=== PATIENT | female | born 1945 ===

== ENCOUNTER 2021-10-07 11:04 | Inpatient (IN) | payer MEDICARE, BC ==
[2021-10-07] MEDS ORDERED: Acetaminophen 325 MG TAB PO PRN (11:30)
[2021-10-07] MEDS ORDERED: Ondansetron PF 4 MG/2 ML Vial IVP PRN (11:30)
[2021-10-07] MEDS ORDERED: Morphine 4 MG/ML VIAL SLOW IVP PRN ×2 (11:30→14:22)
[2021-10-07] MEDS ORDERED: traMADol HCl 50 MG TAB PO PRN ×2 (11:30→19:09)
[2021-10-07] MEDS ORDERED: hydrALAZINE 20 MG/ML VIAL SLOW IVP PRN (11:30)
[2021-10-07] MEDS ORDERED: Lidocaine 2% 20 ml MDV SC SCH (11:45)
[2021-10-07] MEDS ORDERED: Sodium Chloride 0.9% 1,000 ML IV SCH ×2 (11:45→17:15)
[2021-10-07 11:56] LABS: Hemoglobin 12.7 g/dL (12.0-16.0); Mean Corpuscular HGB CONC 31.2 g/dL (32.0-36.0); Mean Corpuscular Hemoglobin 35.7 pg (27.0-31.0); RBC Distribution Width 12.5 % (11.5-14.5); Red Blood Cell (RBC) Count 3.56 mill/uL (4.20-5.40); White Blood Cell (WBC) Count 31.8 thou/uL (4.8-10.8)
[2021-10-07 12:02] VITALS: BMI 19.1
[2021-10-07 12:12] LABS: Band 16 % (5-11); Lymphocytes 3 % (21-51); MDiff Complete? YES; Macrocytosis SLIGHT = 6-15 cells (100X) (0-5/hpf); Mean Platelet Volume 7.8 fL (7.4-10.4); Monocytes 14 % (0-10); Neutrophil 67 % (42-75); Platelet Count 227 thou/uL (130-400); Platelet Morphology Comment Appears Adequate
[2021-10-07 12:18] LABS: Anion Gap 12 mmol/L (10-20); BUN (Urea Nitrogen) 24 mg/dL (9.8-20.1); Calc. Creatinine Clearance 38 mL/min (70-130); Calcium 9.3 mg/dL (7.8-10.44); Carbon Dioxide 36 mmol/L (23-31); Chloride 96 mmol/L (98-107); Glucose 195 mg/dL (83-110); Magnesium 3.1 mg/dL (1.6-2.6); Phosphorus 4.1 mg/dL (2.3-4.7); Potassium 4.5 mmol/L (3.5-5.1); Sodium 139 mmol/L (136-145)
[2021-10-07] MEDS ORDERED: Lidocaine 1% (PF) 30 ML VIAL ONE (12:18)
[2021-10-07] MEDS ORDERED: Albuterol Sulfate 1.25 MG/3 ML NEB NEB SCH ×2 (13:45→19:00)
[2021-10-07] MEDS ORDERED: Albuterol Sulfate 1.25 MG/3 ML NEB NEB PRN (13:45)
[2021-10-07] MEDS ORDERED: Gabapentin 300 MG CAP PO SCH (15:00)
[2021-10-07] MEDS: methylPREDNISolone Sod Succ 40 MG VIAL IVP SCH (18:10)
[2021-10-07] MEDS ORDERED: Cyclobenzaprine 10 MG TAB PO PRN (19:12)
[2021-10-07] MEDS ORDERED: Morphine 2 MG/ML VIAL SLOW IVP PRN (19:14)
[2021-10-07] MEDS ORDERED: traMADol HCl 50 MG TAB PO SCH (19:15)
[2021-10-07] MEDS ORDERED: Acetaminophen 500 MG TAB PO SCH (19:15)
[2021-10-07] MEDS: Gabapentin 100 MG CAP PO SCH (21:13)
[2021-10-07] MEDS: Senokot S 8.6-50 MG TAB PO SCH (21:16)
[2021-10-07] MEDS: Famotidine/PF 20 mg/2ml Vial SLOW IVP SCH (21:19)
[2021-10-07 22:36] LABS: Bacteria/HPF None Seen HPF (None Seen); Bilirubin Negative (Negative); Blood, Urine Negative (Negative); Clarity Clear (Clear); Glucose, Urine (Dipstick) 500 mg/dL (Negative); Ketone, Urine Negative (Negative); Leukocyte 250 Leu/uL (Negative); Nitrite Negative (Negative); Protein, Urine (Dipstick) 10 mg/dL (Neg-Trace); Urobilinogen Normal mg/dL (Less than 2); WBC/HPF 0-3 HPF (0-3)
[2021-10-07 22:37] LABS: Specific Gravity, Urine 1.062 (1.002-1.036)
[2021-10-07 22:38] LABS: Urine Culture Reflex No No
[2021-10-08] MEDS: Acetaminophen 500 MG TAB PO SCH ×4 (00:07→16:50)
[2021-10-08] MEDS: traMADol HCl 50 MG TAB PO SCH ×4 (00:14→16:51)
[2021-10-08] MEDS: methylPREDNISolone Sod Succ 40 MG VIAL IVP SCH ×4 (00:16→16:48)
[2021-10-08 04:19] LABS: Hemoglobin 11.4 g/dL (12.0-16.0); Mean Corpuscular Hemoglobin 34.4 pg (27.0-31.0); Mean Platelet Volume 8.5 fL (7.4-10.4); Platelet Count 185 thou/uL (130-400); Red Blood Cell (RBC) Count 3.31 mill/uL (4.20-5.40); White Blood Cell (WBC) Count 25.5 thou/uL (4.8-10.8)
[2021-10-08 04:32] LABS: ALT (SGPT) 14 U/L (8-55); AST (SGOT) 25 U/L (5-34); Albumin 3.8 g/dL (3.4-4.8); Alkaline Phosphatase 42 U/L (40-110); Anion Gap 13 mmol/L (10-20); BUN (Urea Nitrogen) 23 mg/dL (9.8-20.1); Bilirubin, Total 0.4 mg/dL (0.2-1.2); Calc. Creatinine Clearance 43 mL/min (70-130); Calcium 8.7 mg/dL (7.8-10.44); Carbon Dioxide 28 mmol/L (23-31); Chloride 100 mmol/L (98-107); Globulin 2.2 g/dL (2.4-3.5); Glucose 159 mg/dL (83-110); Magnesium 2.5 mg/dL (1.6-2.6); Phosphorus 3.5 mg/dL (2.3-4.7); Potassium 5.3 mmol/L (3.5-5.1); Sodium 136 mmol/L (136-145)
[2021-10-08 04:41] LABS: #Lymphocytes 0.6 thou/uL (1.20-3.40); #Monocytes 1.4 thou/uL (0.11-0.59); #Neutrophils 23.5 thou/uL (1.40-6.50); %Eosinophils 0.1 % (0.0-10.0); %Lymphocytes 2.2 % (21.0-51.0); %Monocytes 5.6 % (0.0-10.0); MDiff Complete? YES; Macrocytosis SLIGHT = 6-15 cells (100X) (0-5/hpf)
[2021-10-08] MEDS: predniSONE 5 MG TAB PO SCH (08:15)
[2021-10-08] MEDS: Gabapentin 100 MG CAP PO SCH ×3 (08:15→20:35)
[2021-10-08] MEDS: Citalopram 20 MG TAB PO SCH (08:15)
[2021-10-08] MEDS: Senokot 8.6 MG TAB PO SCH (08:16)
[2021-10-08] MEDS: Senokot S 8.6-50 MG TAB PO SCH ×2 (08:16→20:35)
[2021-10-08] MEDS: Polyethylene Glycol 3350 17 GM Packet PO SCH (08:16)
[2021-10-08] MEDS ORDERED: Non-Formulary Item 1 EACH (Tiotropium Bromide [Spiriva] 18 MCG Cap.W.Dev) INH SCH (09:00)
[2021-10-08] MEDS ORDERED: Sodium Chloride 0.9% 1,000 ML IV SCH (10:47)
[2021-10-08 11:39] VITALS: BP 144/67
[2021-10-08] MEDS ORDERED: hydrALAZINE 20 MG/ML VIAL SLOW IVP PRN (16:48)
[2021-10-08] MEDS ORDERED: Sodium Chloride 0.9% 500 ML IV SCH (18:30)
[2021-10-08] MEDS: Sodium Chloride 0.9% 1,000 ML IV SCH ×2 (18:36→20:36)
[2021-10-08 19:18] LABS: Anion Gap 13 mmol/L (10-20); BUN (Urea Nitrogen) 25 mg/dL (9.8-20.1); Calc. Creatinine Clearance 46 mL/min (70-130); Calcium 8.4 mg/dL (7.8-10.44); Carbon Dioxide 31 mmol/L (23-31); Chloride 100 mmol/L (98-107); Glucose 178 mg/dL (83-110); Potassium 5.2 mmol/L (3.5-5.1); Sodium 139 mmol/L (136-145)
[2021-10-08] MEDS: Famotidine/PF 20 mg/2ml Vial SLOW IVP SCH (20:35)
[2021-10-09] MEDS: Acetaminophen 500 MG TAB PO SCH ×5 (01:14→21:00)
[2021-10-09] MEDS: methylPREDNISolone Sod Succ 40 MG VIAL IVP SCH ×2 (01:15→06:10)
[2021-10-09] MEDS: traMADol HCl 50 MG TAB PO SCH ×5 (01:15→21:00)
[2021-10-09 03:42] LABS: #Lymphocytes 0.6 thou/uL (1.20-3.40); #Neutrophils 21.3 thou/uL (1.40-6.50); %Eosinophils 0.1 % (0.0-10.0); %Lymphocytes 2.3 % (21.0-51.0); %Monocytes 8.3 % (0.0-10.0); %Neutrophils 89.3 % (42.0-75.0); Mean Corpuscular HGB CONC 30.7 g/dL (32.0-36.0); Mean Corpuscular Hemoglobin 34.9 pg (27.0-31.0); Mean Platelet Volume 8.8 fL (7.4-10.4); Platelet Count 160 thou/uL (130-400); RBC Distribution Width 11.9 % (11.5-14.5); Red Blood Cell (RBC) Count 3.16 mill/uL (4.20-5.40); White Blood Cell (WBC) Count 23.9 thou/uL (4.8-10.8)
[2021-10-09 03:58] LABS: Anion Gap 12 mmol/L (10-20); BUN (Urea Nitrogen) 29 mg/dL (9.8-20.1); Calc. Creatinine Clearance 47 mL/min (70-130); Calcium 8.8 mg/dL (7.8-10.44); Carbon Dioxide 33 mmol/L (23-31); Chloride 101 mmol/L (98-107); Glucose 176 mg/dL (83-110); Magnesium 2.4 mg/dL (1.6-2.6); Phosphorus 2.4 mg/dL (2.3-4.7); Sodium 141 mmol/L (136-145)
[2021-10-09] MEDS: Polyethylene Glycol 3350 17 GM Packet PO SCH ×2 (08:40→10:17)
[2021-10-09] MEDS: Senokot S 8.6-50 MG TAB PO SCH ×3 (08:40→21:00)
[2021-10-09] MEDS: Senokot 8.6 MG TAB PO SCH ×2 (08:40→10:17)
[2021-10-09] MEDS: Lisinopril 5 MG TAB PO SCH ×2 (08:40→10:16)
[2021-10-09] MEDS: Citalopram 20 MG TAB PO SCH ×2 (08:40→10:16)
[2021-10-09] MEDS: predniSONE 5 MG TAB PO SCH ×2 (08:40→10:17)
[2021-10-09] MEDS: Gabapentin 100 MG CAP PO SCH ×4 (08:40→21:00)
[2021-10-09] MEDS ORDERED: Lisinopril 5 MG TAB PO SCH (09:00)
[2021-10-09] MEDS ORDERED: Morphine 2 MG/ML VIAL SLOW IVP PRN (10:58)
[2021-10-09] MEDS: Famotidine/PF 20 mg/2ml Vial SLOW IVP SCH (20:59)
[2021-10-09] MEDS: Sodium Chloride 0.9% 1,000 ML IV SCH (21:00)
[2021-10-09 23:48] VITALS: TEMP 97.1
[2021-10-09] MEDS: Morphine 2 MG/ML VIAL SLOW IVP PRN (23:50)
[2021-10-10] MEDS: Lorazepam 2 MG/ML VIAL SLOW IVP PRN ×4 (00:06→06:39)
[2021-10-10] MEDS: Morphine 2 MG/ML VIAL SLOW IVP PRN ×3 (00:25→06:29)
[2021-10-10] MEDS: traMADol HCl 50 MG TAB PO SCH (06:29)
[2021-10-10] MEDS: Acetaminophen 500 MG TAB PO SCH (06:29)
[2021-10-10] MEDS ORDERED: Enoxaparin Sodium 40 MG/0.4 ML SYRINGE SC SCH (09:00)
== END 2021-10-10 07:38 | disposition expired | DRG 964 ==
LOC: IMCU/EMU 11:27
PROVIDERS: ADMIT Surgery; ATTEND Surgery
PROC: 0W9930Z Drainage of Right Pleural Cavity with Drainage Device, Percutaneous Approach (ICD-10-PCS; principal; 2021-10-07)
DX: S27.2XXA Traumatic hemopneumothorax, initial encounter (principal); S22.41XA Multiple fractures of ribs, right side, initial encounter for closed fracture; S36.114A Minor laceration of liver, initial encounter; Z66 Do not resuscitate; J44.9 Chronic obstructive pulmonary disease, unspecified; T79.7XXA Traumatic subcutaneous emphysema, initial encounter; W18.30XA Fall on same level, unspecified, initial encounter; I10 Essential (primary) hypertension; Z99.81 Dependence on supplemental oxygen; Y92.003 Bedroom of unspecified non-institutional (private) residence as the place of occurrence of the external cause; Z79.899 Other long term (current) drug therapy; Z79.52 Long term (current) use of systemic steroids; Z87.891 Personal history of nicotine dependence
CPT/HCPCS: 36415; 70450; 71045; 71250; 71260; 72125; 74177; 80048; 80053; 81001; 82533; 82805; 83605; 83735; 84100; 84484; 85025; 87040; 93005; 94640; 94660; 94760; 96365; 96372; 96375; 99292; J0171; J1200; J2001; J2060; J2270; J2543; J2920; J7030; J7050; J7512; J7620; Q9967; S0028; U0002